=== PATIENT | male | born 1960 | race African-American/Black ===

== ENCOUNTER 2022-06-16 01:29 | Inpatient (IN) ==
[2022-06-16] MEDS ORDERED: ONDANSETRON 4 MG/2 ML VIAL IV STA (01:43)
[2022-06-16] MEDS ORDERED: PIPERACILLIN/TAZOBACTAM 3,375 MG in SODIUM CHLORIDE 0.9% 100 ML IV STA (01:43)
[2022-06-16] MEDS ORDERED: ALBUTEROL/IPRATROPIUM 3 ML NEB RESP TX STA (01:43)
[2022-06-16] MEDS ORDERED: SODIUM CHLORIDE 0.9% 500 ML IV STA (01:43)
[2022-06-16] MEDS ORDERED: ACETAMINOPHEN 500 MG TABLET PO STA ×2 (02:05→04:58)
[2022-06-16 02:13] LABS: Basophils % 0.4 % (0.0-0.8); Eosinophils # 0.1 10*3/uL (0.0-0.87); Eosinophils % 0.7 % (0.00-10.9); Hemoglobin 16.8 GM/DL (14.0-18.0); Immature Granulocytes % 0.7 %; Immature Granulocytes Absolute 0.07 #; Lymphocytes # 3.4 10*3/uL (1.4-4.0); Lymphocytes % 35.4 % (21.2-54.2); Mean Corpuscular HGB Conc 32.3 GM/DL (32-36); Mean Corpuscular Volume 86.8 FL (87-102); Mean Platelet Volume 10.9 FL (9.6-12.0); Monocytes # 0.7 10*3/uL (0.11-0.8); Monocytes % 7.1 % (1.7-12.7); Neutrophils % 55.7 % (38.7-73.9); Platelet Count 177 T/CUMM (130-400); Red Blood Count 5.99 MC/CUMM (3.8-5.5); White Blood Count 9.5 T/CUMM (4-12)
[2022-06-16] MEDS ORDERED: OSELTAMIVIR 75 MG CAPSULE PO ONE (02:18)
[2022-06-16 02:29] LABS: PT Patient Result 11.3 SECS (10.1-12.1); Partial Thromboplastin Time 27.6 SECS (23.7-32.9)
[2022-06-16 02:32] LABS: Albumin 3.8 G/DL (3.4-5.0); Calcium 9.5 MG/DL (8.5-10.1); Osmolality,Calculated 280.5 MOS/KG (273-304); Potassium 4.2 MMOL/L (3.5-5.1); Total Protein 8.9 G/DL (6.4-8.2)
[2022-06-16 02:35] LABS: Arterial Base Excess iSTAT 0 MMOL/L (-2.5-2.5); Arterial Bicarbonate iSTAT 23.2 MMOL/L (20-26); Arterial O2 Saturation iSTAT 91 % (95-100); Arterial PCO2 iSTAT 33 MM HG (35-48); Arterial PO2 iSTAT 57 MM HG (80-95); Arterial Total CO2 iSTAT 24 MMO/L (23-27); Arterial pH iSTAT 7.453 (7.35-7.45)
[2022-06-16] MEDS ORDERED: ENOXAPARIN 100 MG/ML SYRINGE SUBCUT STA (03:14)
[2022-06-16] MEDS ORDERED: ONDANSETRON 4 MG/2 ML VIAL IV PRN (04:28)
[2022-06-16] MEDS ORDERED: SIMETHICONE CHEW 125 MG TABLET PO PRN (04:28)
[2022-06-16] MEDS ORDERED: hydrALAZINE 20 MG/1 ML VIAL IV PRN (04:28)
[2022-06-16] MEDS ORDERED: ACETAMINOPHEN 325 MG TABLET PO PRN (04:28)
[2022-06-16] MEDS ORDERED: SODIUM CHLORIDE 0.9% 2,350 ML IV STA (04:34)
[2022-06-16] MEDS ORDERED: ENOXAPARIN 100 MG/ML SYRINGE SUBCUT SCH (05:00)
[2022-06-16] MEDS: PIPERACILLIN/TAZOBACTAM 3,375 MG in SODIUM CHLORIDE 0.9% 100 ML IV SCH ×3 (05:42→20:39)
[2022-06-16 05:46] LABS: Bacteria,Urine Few /HPF (Few); Bilirubin,Urine Negative (Negative); Blood, Urine Moderate mg/dL (Negative); Glucose,Urine (UA) Negative (Negative); Ketones,Urine 5 mg/dL (Negative); Mucus,Urine Occasional /LPF (Occasional); Nitrite,Urine Positive (Negative); Protein,Urine 30 mg/dL (Negative); RBC,Urine 7 /HPF (0-4); Urine Appearance CLEAR (Clear); Urine Color Yellow (Yellow); Urine Specific Gravity > 1.060 (1.001-1.035)
[2022-06-16] MEDS: ALBUTEROL 2.5 MG/3 ML NEB RESP TX SCH ×3 (08:13→19:20)
[2022-06-16] MEDS: POLYETHYLENE GLYCOL POWDER 17 GM PACK PO SCH ×2 (10:10→20:40)
[2022-06-16] MEDS: DOCUSATE SODIUM 100 MG CAPSULE PO SCH ×2 (10:10→20:40)
[2022-06-16] MEDS: PANTOPRAZOLE 40 MG TABLET PO SCH (10:11)
[2022-06-16 14:38] LABS: Arterial Base Excess iSTAT -1 MMOL/L (-2.5-2.5); Arterial Bicarbonate iSTAT 23.6 MMOL/L (20-26); Arterial O2 Saturation iSTAT 95 % (95-100); Arterial PCO2 iSTAT 38 MM HG (35-48); Arterial PO2 iSTAT 75 MM HG (80-95); Arterial Total CO2 iSTAT 25 MMO/L (23-27)
[2022-06-16] MEDS: APIXABAN 5 MG TABLET PO SCH (20:40)
[2022-06-17] MEDS: ALBUTEROL 2.5 MG/3 ML NEB RESP TX SCH ×5 (01:02→23:47)
[2022-06-17] MEDS: PIPERACILLIN/TAZOBACTAM 3,375 MG in SODIUM CHLORIDE 0.9% 100 ML IV SCH ×3 (05:52→20:40)
[2022-06-17 06:05] LABS: Basophils % 0.5 % (0.0-0.8); Eosinophils # 0.3 10*3/uL (0.0-0.87); Eosinophils % 4.1 % (0.00-10.9); Hematocrit 46.6 VOL% (42.0-52.0); Hemoglobin 14.7 GM/DL (14.0-18.0); Immature Granulocytes % 0.4 %; Immature Granulocytes Absolute 0.03 #; Lymphocytes # 2.9 10*3/uL (1.4-4.0); Lymphocytes % 36.9 % (21.2-54.2); Mean Corpuscular HGB Conc 31.5 GM/DL (32-36); Mean Corpuscular Volume 88.1 FL (87-102); Mean Platelet Volume 10.7 FL (9.6-12.0); Monocytes # 0.7 10*3/uL (0.11-0.8); Monocytes % 8.3 % (1.7-12.7); Neutrophils % 49.8 % (38.7-73.9); Platelet Count 152 T/CUMM (130-400); Red Blood Count 5.29 MC/CUMM (3.8-5.5); Red Cell Distribution Width 15.2 % (9.3-17.3); White Blood Count 7.9 T/CUMM (4-12)
[2022-06-17 06:14] LABS: PT Patient Result 11.4 SECS (10.1-12.1)
[2022-06-17 06:28] LABS: Calcium 9.2 MG/DL (8.5-10.1); Potassium 3.7 MMOL/L (3.5-5.1)
[2022-06-17] MEDS ORDERED: MAGNESIUM HYDROXIDE SUSP 30 ML UDCUP PO PRN (08:48)
[2022-06-17] MEDS ORDERED: CHOLECALCIFEROL 5,000 UNIT TABLET PO SCH (09:00)
[2022-06-17] MEDS: PANTOPRAZOLE 40 MG TABLET PO SCH (10:22)
[2022-06-17] MEDS: MEMANTINE 10 MG TABLET PO SCH ×2 (10:22→20:38)
[2022-06-17] MEDS: APIXABAN 5 MG TABLET PO SCH ×2 (10:22→20:39)
[2022-06-17] MEDS: DOCUSATE SODIUM 100 MG CAPSULE PO SCH ×2 (10:22→20:39)
[2022-06-17] MEDS: CYANOCOBALAMIN 500 MCG TABLET PO SCH (10:22)
[2022-06-17] MEDS: ASCORBIC ACID 500 MG TABLET PO SCH (10:22)
[2022-06-17] MEDS: MULTIVITAMIN (CENTRUM) TABLET PO SCH (10:22)
[2022-06-17] MEDS: POLYETHYLENE GLYCOL POWDER 17 GM PACK PO SCH ×2 (10:22→20:39)
[2022-06-17] MEDS: DIVALPROEX 250 MG TABLET PO SCH ×2 (10:22→20:38)
[2022-06-17] MEDS: CHOLECALCIFEROL 5,000 UNIT TABLET PO SCH (10:33)
[2022-06-17] MEDS ORDERED: MAGNESIUM HYDROXIDE SUSP 30 ML UDCUP PO ONE (17:27)
[2022-06-17] MEDS: DONEPEZIL 5 MG TABLET PO SCH (20:39)
[2022-06-18] MEDS: PIPERACILLIN/TAZOBACTAM 3,375 MG in SODIUM CHLORIDE 0.9% 100 ML IV SCH (04:42)
[2022-06-18 05:25] LABS: Basophils % 0.4 % (0.0-0.8); Eosinophils # 0.3 10*3/uL (0.0-0.87); Hematocrit 44.9 VOL% (42.0-52.0); Hemoglobin 13.9 GM/DL (14.0-18.0); Immature Granulocytes % 0.4 %; Immature Granulocytes Absolute 0.03 #; Lymphocytes # 2.9 10*3/uL (1.4-4.0); Lymphocytes % 42.9 % (21.2-54.2); Mean Corpuscular Volume 91.6 FL (87-102); Mean Platelet Volume 11.1 FL (9.6-12.0); Monocytes # 0.6 10*3/uL (0.11-0.8); Neutrophils % 43.3 % (38.7-73.9); Platelet Count 146 T/CUMM (130-400); Red Cell Distribution Width 15.4 % (9.3-17.3); White Blood Count 6.8 T/CUMM (4-12)
[2022-06-18 06:01] LABS: Calcium 9.5 MG/DL (8.5-10.1); Osmolality,Calculated 284.1 MOS/KG (273-304); Potassium 3.9 MMOL/L (3.5-5.1)
[2022-06-18] MEDS: ALBUTEROL 2.5 MG/3 ML NEB RESP TX SCH ×3 (06:45→18:45)
[2022-06-18] MEDS: POLYETHYLENE GLYCOL POWDER 17 GM PACK PO SCH ×3 (10:14→20:13)
[2022-06-18] MEDS: DIVALPROEX 250 MG TABLET PO SCH ×3 (10:15→20:13)
[2022-06-18] MEDS: CHOLECALCIFEROL 5,000 UNIT TABLET PO SCH ×2 (10:15→12:10)
[2022-06-18] MEDS: MULTIVITAMIN (CENTRUM) TABLET PO SCH ×2 (10:15→12:08)
[2022-06-18] MEDS: CYANOCOBALAMIN 500 MCG TABLET PO SCH ×2 (10:15→12:09)
[2022-06-18] MEDS: DOCUSATE SODIUM 100 MG CAPSULE PO SCH ×3 (10:15→20:13)
[2022-06-18] MEDS: PANTOPRAZOLE 40 MG TABLET PO SCH ×2 (10:15→12:09)
[2022-06-18] MEDS: MEMANTINE 10 MG TABLET PO SCH ×3 (10:15→20:14)
[2022-06-18] MEDS: ASCORBIC ACID 500 MG TABLET PO SCH ×2 (10:15→12:09)
[2022-06-18] MEDS: APIXABAN 5 MG TABLET PO SCH ×3 (10:15→20:13)
[2022-06-18] MEDS ORDERED: BISACODYL 10 MG SUPP RECTAL ONE (13:31)
[2022-06-18] MEDS: cefTRIAXone 1,000 MG in SODIUM CHLORIDE 0.9% 100 ML IV SCH (14:51)
[2022-06-18] MEDS: DONEPEZIL 5 MG TABLET PO SCH (20:13)
[2022-06-19] MEDS: ALBUTEROL 2.5 MG/3 ML NEB RESP TX SCH ×4 (00:10→18:50)
[2022-06-19] MEDS: MULTIVITAMIN (CENTRUM) TABLET PO SCH (09:05)
[2022-06-19] MEDS: DOCUSATE SODIUM 100 MG CAPSULE PO SCH ×2 (09:06→21:06)
[2022-06-19] MEDS: DIVALPROEX 250 MG TABLET PO SCH ×2 (09:06→21:06)
[2022-06-19] MEDS: POLYETHYLENE GLYCOL POWDER 17 GM PACK PO SCH ×2 (09:09→21:06)
[2022-06-19] MEDS: PANTOPRAZOLE 40 MG TABLET PO SCH (09:10)
[2022-06-19] MEDS: CHOLECALCIFEROL 5,000 UNIT TABLET PO SCH (09:10)
[2022-06-19] MEDS: ASCORBIC ACID 500 MG TABLET PO SCH (09:10)
[2022-06-19] MEDS: CYANOCOBALAMIN 500 MCG TABLET PO SCH (09:10)
[2022-06-19] MEDS: APIXABAN 5 MG TABLET PO SCH ×2 (09:13→21:06)
[2022-06-19] MEDS: MEMANTINE 10 MG TABLET PO SCH ×2 (09:15→21:06)
[2022-06-19] MEDS: cefTRIAXone 1,000 MG in SODIUM CHLORIDE 0.9% 100 ML IV SCH (14:49)
[2022-06-19] MEDS: DONEPEZIL 5 MG TABLET PO SCH (21:06)
[2022-06-20] MEDS: ALBUTEROL 2.5 MG/3 ML NEB RESP TX SCH ×3 (00:45→15:34)
[2022-06-20 06:03] LABS: Basophils # 0.1 10*3/uL (0.0-0.2); Basophils % 0.6 % (0.0-0.8); Eosinophils # 0.3 10*3/uL (0.0-0.87); Eosinophils % 3.6 % (0.00-10.9); Hematocrit 48.1 VOL% (42.0-52.0); Hemoglobin 15.2 GM/DL (14.0-18.0); Immature Granulocytes % 0.5 %; Immature Granulocytes Absolute 0.04 #; Lymphocytes # 3.2 10*3/uL (1.4-4.0); Lymphocytes % 38.1 % (21.2-54.2); Mean Corpuscular HGB Conc 31.6 GM/DL (32-36); Mean Corpuscular Volume 88.7 FL (87-102); Mean Platelet Volume 10.9 FL (9.6-12.0); Monocytes # 0.6 10*3/uL (0.11-0.8); Monocytes % 7.1 % (1.7-12.7); Neutrophils % 50.1 % (38.7-73.9); Platelet Count 220 T/CUMM (130-400); Red Blood Count 5.42 MC/CUMM (3.8-5.5); Red Cell Distribution Width 15.2 % (9.3-17.3); White Blood Count 8.4 T/CUMM (4-12)
[2022-06-20 06:21] LABS: Calcium 9.6 MG/DL (8.5-10.1); Osmolality,Calculated 284.1 MOS/KG (273-304); Potassium 3.9 MMOL/L (3.5-5.1)
[2022-06-20] MEDS: DIVALPROEX 250 MG TABLET PO SCH (09:58)
[2022-06-20] MEDS: CYANOCOBALAMIN 500 MCG TABLET PO SCH (09:58)
[2022-06-20] MEDS: APIXABAN 5 MG TABLET PO SCH (09:58)
[2022-06-20] MEDS: DOCUSATE SODIUM 100 MG CAPSULE PO SCH (09:58)
[2022-06-20] MEDS: PANTOPRAZOLE 40 MG TABLET PO SCH (09:58)
[2022-06-20] MEDS: POLYETHYLENE GLYCOL POWDER 17 GM PACK PO SCH (09:58)
[2022-06-20] MEDS: MEMANTINE 10 MG TABLET PO SCH (09:58)
[2022-06-20] MEDS: ASCORBIC ACID 500 MG TABLET PO SCH (09:58)
[2022-06-20] MEDS: MULTIVITAMIN (CENTRUM) TABLET PO SCH (09:58)
[2022-06-20] MEDS: CHOLECALCIFEROL 5,000 UNIT TABLET PO SCH (09:59)
[2022-06-20 14:13] VITALS: BP 119/77
[2022-06-26] MEDS ORDERED: APIXABAN 5 MG TABLET PO SCH (09:00)
== END 2022-06-20 15:43 | DRG 871 ==
LOC: N.ED 01:29 → N.EDINP 04:28 → N.5E 17:05
PROVIDERS: ADMIT Internal Medicine; ATTEND Internal Medicine